=== PATIENT | female | born 1985 | race African-American/Black ===

== ENCOUNTER 2024-02-04 17:38 | Inpatient (IN) | payer SELFPAY ==
[~2024-02-04] VITALS: Ht 332.7 cm; Wt 106.1 kg
[2024-02-04] MEDS: MORPHINE SULFATE 4 MG/ML INJ (FOR IV/IM USE) IV ONE (19:36)
[2024-02-04] MEDS: ONDANSETRON HCL 4MG/2ML INJ IV ONE (19:36)
[2024-02-04] MEDS: SODIUM CHLORIDE 0.9% 1,000 ML IV ONE (19:37)
[2024-02-04] MEDS: HYDRALAZINE 20MG/ML VIAL IV ONE (19:37)
[2024-02-04 20:21] LABS: CHLORIDE 106 mEq/L (98-107); POTASSIUM 3.7 mEq/L (3.5-5.1); SODIUM 137 mEq/L (136-145)
[2024-02-04 20:22] LABS: CARBON DIOXIDE 25 mEq/L (21-32)
[2024-02-04 20:27] LABS: CREATININE 1.2 mg/dL (0.6-1.0); GLUCOSE 103 mg/dL (70-105); HCG SCREEN NEGATIVE; UREA NITROGEN BLOOD 7 mg/dL (9-23)
[2024-02-04 20:29] LABS: ALANINE AMINOTRANSFERASE < 7 IU/L (10-49); ALBUMIN 4.3 g/dL (3.2-4.8); ASPARTATE AMINOTRANSFERASE 14 IU/L (<34); BILIRUBIN DIRECT 0.4 mg/dL (<=3.0); BILIRUBIN TOTAL 1.2 mg/dL (0.1-1.0); PROTEIN TOTAL 7.3 g/dL (6.0-8.3)
[2024-02-04 20:33] LABS: BASOPHILS % 1.1 % (0.0-2.0); EOSINOPHILS % 0.4 % (0.0-5.0); HEMATOCRIT. 34.6 % (36.0-48.0); HEMOGLOBIN. 11.1 g/dL (12.0-16.0); LYMPHOCYTES % 27.2 % (20.0-50.0); MEAN CORPUSCULAR HEMOGLOBIN 27.8 pg (28.0-32.0); MEAN CORPUSCULAR HGB CONC 31.9 g/dL (31.0-37.0); MEAN CORPUSCULAR VOLUME 87.2 fL (81.0-99.0); MONOCYTES % 6.5 % (2.0-8.0); NEUTROPHILS % 64.8 % (40.0-76.0); PLATELET 271 x1000/uL (130-400); RED BLOOD CELL COUNT 3.97 mill/uL (4.2-5.4); RED CELL DISTRIBUTION WIDTH 16.6 % (11.6-14.6); WHITE BLOOD COUNT 9.4 x1000/uL (4.5-11.0)
[2024-02-05] VITALS (7 sets, daily range): BP systolic 149–196; BP diastolic 89–117; PULSE 90–112; RESP 18–20; TEMP 36.50292–37.28076; O2SAT 96–100
[2024-02-05] MEDS: MORPHINE SULFATE 4 MG/ML INJ (FOR IV/IM USE) IV ONE (00:31)
[2024-02-05 01:49] LABS: CLARITY URINE CLEAR (CLEAR); COLOR URINE YELLOW (YELLOW); SPECIFIC GRAVITY URINE 1.016 (1.005-1.030)
[2024-02-05 01:50] LABS: GLUCOSE URINE NEGATIVE (NEGATIVE); KETONES URINE 2+ (NEGATIVE); NITRITE URINE NEGATIVE (NEGATIVE); OCCULT BLOOD URINE NEGATIVE (NEGATIVE); PH URINE 7.5 (4.5-8.0); PROTEIN URINE TRACE (NEGATIVE)
[2024-02-05 01:51] LABS: LEUKOCYTE ESTERASE URINE 1+ (NEGATIVE)
[2024-02-05 02:28] LABS: SQUAMOUS EPITHELIAL CELL URINE FEW /lpf (RARE/1+)
[2024-02-05 02:30] LABS: RBC URINE 0-2 /hpf (0-2); WBC URINE 0-2 /hpf (0-2)
[2024-02-05 02:34] LABS: BACTERIA URINE NONE SEEN
[2024-02-05] MEDS ORDERED: DOCUSATE SODIUM 100MG CAPSULE PO PRN (06:15)
[2024-02-05] MEDS ORDERED: CLONIDINE 0.1MG TABLET PO PRN (06:15)
[2024-02-05] MEDS ORDERED: MAGNESIUM/ALUMINUM HYDROXIDE/SIMETHICONE 30ML UDC PO PRN (06:15)
[2024-02-05] MEDS ORDERED: IPRATROPIUM/ALBUTEROL 0.5-3(2.5)MG/3ML NEB HHN PRN (06:15)
[2024-02-05] MEDS ORDERED: ACETAMINOPHEN 325MG TABLET PO PRN (06:15)
[2024-02-05] MEDS ORDERED: GUAIFENESIN 200MG/10ML SUGAR FREE UDC PO PRN (06:15)
[2024-02-05] MEDS ORDERED: LORAZEPAM 0.5MG TABLET PO PRN (06:15)
[2024-02-05] MEDS: HYDRALAZINE 20MG/ML VIAL IV NR (06:55)
[2024-02-05] MEDS ORDERED: KETOROLAC 15MG/ML VIAL IV PRN (07:00)
[2024-02-05] MEDS: SODIUM CHLORIDE 0.9% 1,000 ML IV SCH (07:15)
[2024-02-05] MEDS ORDERED: HYDRALAZINE 20MG/ML VIAL IV PRN (10:30)
[2024-02-05] MEDS: ONDANSETRON HCL 4MG/2ML INJ IV PRN (10:38)
[2024-02-05] MEDS: CEFTRIAXONE SODIUM 1G VIAL IM NR (11:23)
[2024-02-05] MEDS: AMLODIPINE 10MG TABLET PO SCH (11:27)
[2024-02-05] MEDS: CARVEDILOL 6.25 MG TABLET PO SCH (12:15)
[2024-02-05] MEDS: HYDRALAZINE HCL 10MG TABLET PO SCH (14:00)
[2024-02-05 14:05] LABS: TROPONIN I HIGH SENSITIVITY 61 ng/L (3.0-34)
[2024-02-05 14:13] LABS: HEPATITIS B SURFACE ANTIGEN NEGATIVE (Negative)
[2024-02-05 14:33] LABS: HEPATITIS A AB IGM NEGATIVE (Negative)
[2024-02-05 14:34] LABS: HEPATITIS B CORE AB IGM NEGATIVE (Negative); HEPATITIS C AB NON REACTIVE (Neg) (Negative)
[2024-02-05] MEDS: ACETAMINOPHEN 325MG TABLET PO PRN (18:03)
[2024-02-05] MEDS: DEXT 5%/0.45% NACL 1000ML 1,000 ML IV SCH (18:06)
[2024-02-05 22:27] LABS: TROPONIN I HIGH SENSITIVITY 65 ng/L (3.0-34)
[2024-02-06] VITALS: BP 143/69; PULSE 87; RESP 18; TEMP 37.00296; O2SAT 96
[2024-02-06 04:00] VITALS: BP 140/75; PULSE 91; RESP 18; TEMP 36.22512; O2SAT 98
[2024-02-06 05:37] VITALS: BP 140/75; PULSE 91; RESP 18; TEMP 36.22512; O2SAT 98
[2024-02-06 07:20] LABS: CHLORIDE 106 mEq/L (98-107); POTASSIUM 3.9 mEq/L (3.5-5.1); SODIUM 136 mEq/L (136-145)
[2024-02-06 07:23] LABS: CALCIUM 9.1 mg/dL (8.7-10.4); CARBON DIOXIDE 22 mEq/L (21-32)
[2024-02-06 07:28] LABS: GLUCOSE 93 mg/dL (70-105); UREA NITROGEN BLOOD 8 mg/dL (9-23)
[2024-02-06 07:29] LABS: ALANINE AMINOTRANSFERASE < 7 IU/L (10-49)
[2024-02-06 07:30] LABS: ALBUMIN 4.3 g/dL (3.2-4.8); ASPARTATE AMINOTRANSFERASE 12 IU/L (<34); BILIRUBIN DIRECT 0.3 mg/dL (<=3.0); BILIRUBIN TOTAL 0.8 mg/dL (0.1-1.0)
[2024-02-06 08:00] VITALS: BP 159/93; PULSE 92; RESP 18; TEMP 36.50292; O2SAT 100
[2024-02-06 09:17] LABS: BASOPHILS % 0.8 % (0.0-2.0); EOSINOPHILS % 0.7 % (0.0-5.0); HEMATOCRIT. 33.3 % (36.0-48.0); HEMOGLOBIN. 10.9 g/dL (12.0-16.0); LYMPHOCYTES % 28.9 % (20.0-50.0); MEAN CORPUSCULAR HEMOGLOBIN 28.5 pg (28.0-32.0); MEAN CORPUSCULAR HGB CONC 32.8 g/dL (31.0-37.0); MEAN CORPUSCULAR VOLUME 86.7 fL (81.0-99.0); MEAN PLATELET VOLUME 10.1 fl (7.4-10.4); MONOCYTES % 5.4 % (2.0-8.0); NEUTROPHILS % 64.2 % (40.0-76.0); PLATELET 312 x1000/uL (130-400); RED BLOOD CELL COUNT 3.84 mill/uL (4.2-5.4); RED CELL DISTRIBUTION WIDTH 16.4 % (11.6-14.6); WHITE BLOOD COUNT 7.4 x1000/uL (4.5-11.0)
[2024-02-06] MEDS ORDERED: PROT40 PO (09:49)
[2024-02-06] MEDS ORDERED: ONDA4TAB50 MT (09:49)
[2024-02-06] MEDS ORDERED: METR375C2 MT (09:49)
[2024-02-06] MEDS ORDERED: IBUP-2741 MT (09:49)
[2024-02-06 10:50] VITALS: BP 148/89; PULSE 92; TEMP 97.7; O2SAT 100
[2024-02-06 11:20] LABS: TROPONIN I HIGH SENSITIVITY 63 ng/L (3.0-34)
[2024-02-06 12:00] VITALS: BP 138/88; PULSE 88; RESP 20; TEMP 36.6696; TEMP 36.66960; O2SAT 100
== END 2024-02-06 13:00 | disposition home or self-care (01) ==
LOC: ER 17:38 → EDBEDREQ 02-05 01:36 → 5WST 02-05 03:47 → 8WST 02-05 06:25
PROVIDERS: ADMIT Internal Medicine; ATTEND Internal Medicine
DX: K80.70 Calculus of gallbladder and bile duct without cholecystitis without obstruction (principal); N17.0 Acute kidney failure with tubular necrosis; D64.9 Anemia, unspecified; I10 Essential (primary) hypertension; N39.0 Urinary tract infection, site not specified; I16.0 Hypertensive urgency; F41.9 Anxiety disorder, unspecified; R74.01 Elevation of levels of liver transaminase levels; Z79.899 Other long term (current) drug therapy
CPT/HCPCS: 36415; 71045; 74176; 76705; 80048; 80076; 81003; 83605; 84145; 84443; 84484; 84703; 85025; 86705; 86709; 87340; 99285; J0360; J0696; J2270; J2405; J7030